=== PATIENT | female | born 1990 | race Caucasian/White ===

== ENCOUNTER 2021-04-13 13:40 | Emergency (ER) | payer SELFPAY ==
[2021-04-13 13:51] VITALS: BP 144/84; PULSE 81; RESP 16; TEMP 36.2; O2SAT 99
--- NOTE | 2021-04-13 14:07 | ED.ANIMALBIT ---
HPI - Animal Bite General Chief Complaint: Animal Bite Stated Complaint: Dog bite Time Seen by Provider: 04/13/21 14:00 Source: patient and RN notes reviewed Mode of arrival: ambulatory Limitations: no limitations History of Present Illness HPI narrative: Patient presents today complaining of a dog bite to her right fourth finger that was sustained at work yesterday. 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 She was bit by a Boxer yesterday. The dog is up-to-date on all vaccines. Patient is unsure of the date of her last tetanus shot. She currently rates her pain 5/10. She did clean the area yesterday and has been washing with soap and water. She reports some tingling to the fingernail. She has not tried any medication for pain prior to arrival. MD complaint: animal bite Related Data Home Medications Medication Instructions Recorded Confirmed lamotrigine [Lamictal] 100 mg PO BID 12/19/18 12/19/18 quetiapine 25 mg PO BID 12/19/18 12/19/18 escitalopram oxalate mg 04/13/21 Allergies Allergy/AdvReac Type Severity Reaction Status Date / Time codeine Allergy Severe Verified 12/21/17 23:15 red dye Allergy Mild Verified 12/21/17 23:15 Review of Systems Review of Systems: CONSTITUTIONAL: Denies body aches, fever, chills, or sweats. EYES: Denies visual changes, redness, or discharge. ENT: Denies rhinorrhea, congestion, sore throat, or otalgia. CARDIOVASCULAR: Denies chest pain, palpitations, or edema. RESPIRATORY: Denies cough or dyspnea. GASTROINTESTINAL: Denies abdominal pain, nausea, vomiting, or diarrhea. GENITOURINARY: Denies dysuria or hematuria. SKIN: Denies rash, itching. + Dog bite MUSCULOSKELETAL: Denies back pain, joint pain, or myalgia. NEUROLOGIC: Denies headache, numbness, tingling, or weakness. PSYCH: Denies depression or anxiety. [facility] Past Medical History Medical History (Updated 04/13/21 @ 15:18 by Kassy Carey, [employer]PERVISOR, ) Bipolar disorder Depression Hypertension Comments At time of signature, I have reviewed and agree with nursing past medical, surgical, social and family history unless otherwise noted. Please see nursing chart for further information. There is no relevant family history pertinent to the presenting complaint Exam Narrative: GENERAL: Well-appearing, well-nourished, and in no acute distress. HEAD: Normocephalic, atraumatic. EYES: EOMI. No redness or drainage. Conjunctivae normal. ENT: Mucous membranes pink and moist. NECK: Normal AROM. CHEST: No respiratory distress. EXTREMITIES: Approximately 1 cm partial skin avulsion at the base of the fingernail of the right fourth finger with possible superficial puncture wound. Distal sensation intact. Capillary refill normal. Full AROM of the finger. Nail unaffected. SKIN: Warm, dry, no rash. Capillary refill normal. Normal skin turgor. NEURO: No focal deficits. Alert and oriented x3. Gait steady. PSYCH: Normal affect. No signs of depression or anxiety. Course Course Level of Care: Express Care Visit Vital Signs Vital signs: Vital Signs Temperature 97.2 F L 04/13/21 13:51 Pulse Rate 81 04/13/21 13:51 Respiratory Rate 16 04/13/21 13:51 Blood Pressure 144/84 H 04/13/21 13:51 Pulse Oximetry 99 04/13/21 13:51 Temperature 97.2 F L 04/13/21 13:51 Pulse Rate 81 04/13/21 13:51 Respiratory Rate 16 04/13/21 13:51 Blood Pressure 144/84 H 04/13/21 13:51 Pulse Oximetry 99 04/13/21 13:51 Reviewed. Pt has been instructed to follow up with her PCP regarding her elevated blood pressure today. MDM - Animal Bite Differential Diagnosis Differential diagnosis: Likely dog bite and rabies contact Critical Care Time Critical Care Time Critical Care Time: No Discharge Plan Discharge Clinical Impression: Dog bite Qualifiers: Encounter type: initial encounter Qualified Code(s): W54.0XXA - Bitten by dog, initial encounter Patient Disposition: Home, Self-Care Condition: Stable Instructions:
[2021-04-13] MEDS: TETANUS,DIPHTHERIA,AC PERTUSSIS ADULT (0.5 ML) BOOSTRIX IM (14:11)
== END 2021-04-13 14:32 | disposition home or self-care (01) ==
PROVIDERS: Emergency Provider Nurse Practitioner; PCP Family Medicine Adolescent Medicine
DX: S61.204A Unspecified open wound of right ring finger without damage to nail, initial encounter (principal); W54.0XXA Bitten by dog, initial encounter; Y99.0 Civilian activity done for income or pay; Z23 Encounter for immunization; I10 Essential (primary) hypertension; F31.9 Bipolar disorder, unspecified
CPT/HCPCS: 90471; 90715; 99213; G0463

== ENCOUNTER 2021-12-25 15:57 | Emergency (ER) | payer OTHER, SELFPAY ==
[2021-12-25 16:11] VITALS: BP 144/99; PULSE 86; RESP 16; TEMP 36.3; O2SAT 100
--- NOTE | 2021-12-25 16:11 | ED.EAR ---
HPI - Ear Problem General Chief complaint: Ear Stated complaint: lt ear pain Time Seen by Provider: 12/25/21 16:15 Source: patient Mode of arrival: ambulatory Limitations: no limitations History of Present Illness HPI Narrative: Ms. Selina Richards is a 31 year old female patient presenting to clinic today with complaints of runny nose and congestion with left-sided rib pain. She reports the left-sided ear pain began this morning. States that she has had runny nose and congestion over the weekend. Her kid have been sick with RSV. Related Data Home Medications Medication Instructions Recorded Confirmed lamotrigine 100 mg tablet 100 mg PO BID 12/19/18 12/19/18 (Lamictal) quetiapine 25 mg tablet 25 mg PO BID 12/19/18 12/19/18 escitalopram oxalate 10 mg tablet mg 04/13/21 Allergies Allergy/AdvReac Type Severity Reaction Status Date / Time codeine Allergy Severe Verified 12/21/17 23:15 red dye Allergy Mild Verified 12/21/17 23:15 Review of Systems Review of Systems: Pertinent positives per HPI. Patient denies any fever, chills, rash, headache, visual changes, dizziness, cough, shortness of breath, chest pain, palpitations, nausea, vomiting, diarrhea, constipation, abdominal pain, or any urinary issues. [facility] Past Medical History Medical History Bipolar disorder Depression Hypertension Comments At the time of my signature, I reviewed and agree with the nursing past medical, surgical, social, and family history. There is no relevant family history pertinent to the patient complaint. Exam Narrative: General: Well-developed, well nourished, in no apparent distress Head: Normocephalic, atraumatic Eyes: Pupils equally round and reactive to light bilaterally, EOM intact, sclera and conjunctive clear, no discharge, lids normal Ears: Right TMs intact, opaque, and dull, left TM intact, red, opaque, and bulging, ear canals clear, no drainage, grossly hearing normal. Nose: Nares patent, clear nasal discharge, mild inflammation, no sinus tenderness. Mouth: Oral pharynx without lesions or masses, good dentition, MMM. Neck: Supple, trachea midline, no enlargement of anterior or posterior cervical nodes, no thyroid masses or goiter palpable. Cardio: Regular rate and rhythm, s1 and s2 normal, no murmur appreciated. Resp: Clear to auscultation bilaterally, no rhonchi, rales, wheezing or rubs Course Course Emergency Course: Portions of this record may have been created with voice recognition software. Level of Care: Express Care Visit Vital Signs Vital signs: Vital Signs Temperature 36.3 C L 12/25/21 16:11 Pulse Rate 86 12/25/21 16:11 Respiratory Rate 16 12/25/21 16:11 Blood Pressure 144/99 H 12/25/21 16:11 Pulse Oximetry 100 12/25/21 16:11 Temperature 36.3 C L 12/25/21 16:11 Pulse Rate 86 12/25/21 16:11 Respiratory Rate 16 12/25/21 16:11 Blood Pressure 144/99 H 12/25/21 16:11 Pulse Oximetry 100 12/25/21 16:11 Vital signs reviewed Medical Decision Making MDM Narrative Medical decision making narrative: At the time of visit patient is resting comfortably on the exam table. I suspect patient has upper respiratory infection with left otitis media. Prescription for amoxicillin was sent to the pharmacy. Supportive measures were discussed with the patient she voiced understanding of discharge instructions and agrees to treatment plan. Differential Diagnosis Differential Diagnosis: Otitis media, otitis started coming upper respiratory infection, eustachian tube dysfunction, otalgia Vital Signs Vital Signs: Vital Signs Temperature 36.3 C L 12/25/21 16:11 Pulse Rate 86 12/25/21 16:11 Respiratory Rate 16 12/25/21 16:11 Blood Pressure 144/99 H 12/25/21 16:11 Pulse Oximetry 100 12/25/21 16:11 Temperature 36.3 C L 12/25/21 16:11 Pulse Rate 86 12/25/21 16:11 Respiratory Rate 16 12/25/21 16:1
[2021-12-25 16:54] VITALS: BP 144/99; PULSE 86; RESP 16; TEMP 36.3; O2SAT 100
== END 2021-12-25 16:19 | disposition home or self-care (01) ==
PROVIDERS: Emergency Provider Nurse Practitioner Family; PCP Family Medicine Adolescent Medicine
DX: J06.9 Acute upper respiratory infection, unspecified (principal); H66.92 Otitis media, unspecified, left ear; I10 Essential (primary) hypertension; F31.9 Bipolar disorder, unspecified
CPT/HCPCS: 99213; G0463

== ENCOUNTER 2022-02-08 13:39 | Emergency (ER) | payer OTHER, SELFPAY ==
--- NOTE | ~2022-02-08 | XR_ITS ---
Lateral and Madden views of the calcaneus Clinical history: Heel pain FINDINGS: No fracture or dislocation identified. Joint spaces are preserved. Os trigonum seen. Soft t issues are unremarkable. IMPRESSION: No significant abnormality seen. Reviewed, dictated and finalized at location [facility]
[2022-02-08 13:50] VITALS: BP 145/101; PULSE 85; RESP 20; TEMP 36.2; O2SAT 100
--- NOTE | 2022-02-08 14:15 | ED.GENADULT ---
HPI - General Adult General Chief complaint: Extremity Injury, Lower Stated complaint: rt heel pain Time Seen by Provider: 02/08/22 13:55 Source: patient, family, RN notes reviewed and old records reviewed Mode of arrival: ambulatory Limitations: no limitations History of Present Illness HPI narrative: 31 year old female accompanied by her brother presents to express car with complaints of right heel pain which comes and goes with no known injury. Patient reports pain increase when stepping down on it. Patient reports that that she has not had any injury to her foot or heel. Patient reports that she did go and get some new shoes thinking that may help. Patient has no obvious swelling, bruising, circulation, sensation and mobility intact. MD complaint: right heel pain Onset (ago): month(s) (2) Related Data Home Medications Medication Instructions Recorded Confirmed lamotrigine 100 mg tablet 100 mg PO BID 12/19/18 02/08/22 (Lamictal) quetiapine 25 mg tablet 25 mg PO BID 12/19/18 02/08/22 escitalopram oxalate 10 mg tablet 10 mg PO DAILY 04/13/21 02/08/22 Allergies Allergy/AdvReac Type Severity Reaction Status Date / Time codeine Allergy Severe Nausea Verified 02/08/22 13:53 red dye Allergy Mild Gastrointestinal Verified 02/08/22 13:53 Upset Review of Systems Review of Systems: CONSTITUTIONAL: Denies fever, chills, or sweats. EYES: Denies visual changes, redness, or discharge. ENT: Denies rhinorrhea, congestion, sore throat, or otalgia. CARDIOVASCULAR: Denies chest pain, palpitations, or edema. RESPIRATORY: Denies cough or dyspnea. GASTROINTESTINAL: Denies abdominal pain, nausea, vomiting, or diarrhea. GENITOURINARY: Denies dysuria or hematuria. SKIN: Denies rash or itching. MUSCULOSKELETAL: Denies back pain, joint pain, or myalgia, positive for right heel pain NEUROLOGIC: Denies headache, numbness, or weakness. PSYCHIATRIC: Denies anxiety or depression. All systems reviewed & are unremarkable except as noted in HPI and below PMFSH Past Medical History Medical History Bipolar disorder Depression Hypertension Social History Social History (Updated 02/08/22 @ 15:57 by Ivette Ly NP) Smoking status: Never smoker Comments At time of signature, agree with nursing past medical, surgical, social and family history. There is no relevant family history pertinent to the presenting complaint Exam Narrative: GENERAL: Well-appearing, well-nourished, and in no acute distress. HEAD: Normocephalic, atraumatic. EYES: PERRLA and EOMI. ENT: Nares clear, no rhinorrhea or epistaxis. Mucous membranes moist. NECK: Supple.no lymphadenopathy CHEST: Clear to auscultation. No respiratory distress.SAO2 100% on room air HEART: Regular rate and rhythm. No murmur heard. Normal peripheral pulses. ABDOMEN: Soft, nontender, nondistended, normal active bowel sounds. EXTREMITIES: Normal range of motion. No edema. pain to right heel no injury or swelling, circulation and sensation intact with pain stated increased at times with weight bearing. SKIN: Warm, dry, no rash. NEURO: No focal deficits. Alert and oriented x3. Course Course Emergency Course: Patient is aware of diagnosis, understands and agrees to treatment plan.? Anticipatory guidance given.? Patient agrees to follow-up as directed and is aware of reasons to seek care at the emergency department. Portions of this record may have been created with voice recognition software Level of Care: Express Care Visit Vital Signs Vital signs: Vital Signs Temperature 36.2 C L 02/08/22 13:50 Pulse Rate 85 02/08/22 13:50 Respiratory Rate 20 02/08/22 13:50 Blood Pressure 145/101 H 02/08/22 13:50 Pulse Oximetry 100 02/08/22 13:50 Temperature 36.2 C L 02/08/22 13:50 Pulse Rate 85 02/08/22 13:50 Respiratory Rate 20 02/08/22 13:50 Blood Pressure 145/101 H 02/08/22 13:50 Pulse Oximetry 100 12
== END 2022-02-08 14:23 | disposition home or self-care (01) ==
PROVIDERS: Emergency Provider Registered Nurse; PCP Family Medicine Adolescent Medicine
DX: M79.671 Pain in right foot (principal); I10 Essential (primary) hypertension; F31.9 Bipolar disorder, unspecified
CPT/HCPCS: 73650; 99213; G0463

== ENCOUNTER 2022-03-06 09:16 | Outpatient (CLI) | payer OTHER, SELFPAY ==
[2022-03-06 20:06] LABS: Hematocrit 40.7 % (37.0-47.0); Hemoglobin 12.9 g/dL (12.0-15.0); Mean Corpuscular HGB Conc 31.7 g/dl (32-36); Mean Corpuscular Hemoglobin 27.2 pg (26-34); Mean Corpuscular Volume 85.7 fl (80-100); Mean Platelet Volume 10.2 fl (7.4-10.4); Platelet Count Result 295 k/mm3 (150-375); Red Blood Count 4.75 M/mm3 (4.2-5.4); White Blood Count 6.8 K/mm3 (4.5-10.0)
[2022-03-06 20:13] LABS: Rheumatoid Factor < 8.6 IU/ML (<12)
[2022-03-06 20:16] LABS: Potassium 3.9 mmol/L (3.4-5.0)
[2022-03-06 20:24] LABS: Alanine Aminotransferase 28 U/L (6-35); Albumin Level 4.3 g/dL (3.5-5.1); Alkaline Phosphatase 96 U/L (38-126); Anion Gap 7 mmol/L (8-16); Aspartate Amino Transferase 36 U/L (14-36); Bilirubin,Total 0.4 mg/dL (0.2-1.3); Blood Urea Nitrogen 9 mg/dL (7-17); CRP 0.6 mg/dL (<1.0); Calcium 8.8 mg/dL (8.4-10.2); Carbon Dioxide 28 mmol/L (22-30); Chloride 103 mmol/L (98-107); Cholesterol 187 mg/dL (0-200); Estimated Glomerular Filt Rate > 60; Glucose 97 mg/dL (65-110); HDL Direct 42 mg/dL; Sodium 138 mmol/L (137-145); Triglycerides 180 mg/dL (<150)
[2022-03-06 20:26] LABS: LDL Cholesterol Direct 104 mg/dL
[2022-03-11 06:46] LABS: ANA Cascade Screen Negative (Negative)
== END 2022-03-06 09:17 | disposition home or self-care (01) ==
LOC: ANHGOSHLAB 09:18
PROVIDERS: PCP Family Medicine; Visit Provider Family Medicine
DX: E66.9 Obesity, unspecified (principal); I10 Essential (primary) hypertension; M25.50 Pain in unspecified joint; R53.83 Other fatigue; Z79.899 Other long term (current) drug therapy
CPT/HCPCS: 36415; 80053; 80061; 84443; 85027; 86038; 86140; 86430

== ENCOUNTER 2022-09-12 08:25 | Outpatient (CLI) | payer OTHER, SELFPAY ==
[2022-09-12 13:03] LABS: Hemoglobin 11.9 g/dL (12.0-15.0); Mean Corpuscular HGB Conc 31.3 g/dl (32-36); Mean Corpuscular Hemoglobin 27.4 pg (26-34); Mean Corpuscular Volume 87.4 fl (80-100); Mean Platelet Volume 9.7 fl (7.4-10.4); Platelet Count Result 279 k/mm3 (150-375); Red Blood Count 4.35 M/mm3 (4.2-5.4); Red Cell Distribution Width 14.6 % (11.5-14.5); White Blood Count 7.7 K/mm3 (4.5-10.0)
[2022-09-12 13:15] LABS: Alanine Aminotransferase 23 U/L (6-35); Albumin Level 3.8 g/dL (3.5-5.1); Alkaline Phosphatase 93 U/L (38-126); Anion Gap 9 mmol/L (8-16); Aspartate Amino Transferase 47 U/L (14-36); Bilirubin,Total 0.4 mg/dL (0.2-1.3); Blood Urea Nitrogen 8 mg/dL (7-17); Calcium 8.6 mg/dL (8.4-10.2); Carbon Dioxide 24 mmol/L (22-30); Chloride 104 mmol/L (98-107); Cholesterol 164 mg/dL (0-200); Estimated Glomerular Filt Rate > 60; Glucose 90 mg/dL (65-110); HDL Direct 40 mg/dL; Potassium 3.9 mmol/L (3.4-5.0); Sodium 137 mmol/L (137-145); Triglycerides 143 mg/dL (<150)
[2022-09-12 13:21] LABS: Iron 48 ug/dL (37-170)
[2022-09-12 13:25] LABS: LDL Cholesterol Direct 86 mg/dL
[2022-09-12 13:37] LABS: Percent Iron Saturation 11 % (20-50)
== END 2022-09-12 08:26 | disposition home or self-care (01) ==
LOC: ANHGOSHLAB 08:27
PROVIDERS: PCP Family Medicine; Visit Provider Family Medicine
DX: R12 Heartburn (principal); G25.81 Restless legs syndrome; R53.83 Other fatigue; M25.50 Pain in unspecified joint; I10 Essential (primary) hypertension; E66.9 Obesity, unspecified
CPT/HCPCS: 36415; 80053; 80061; 82728; 83540; 83550; 84443; 85027

== ENCOUNTER 2022-10-04 12:32 | Emergency (ER) | payer OTHER, SELFPAY ==
--- NOTE | 2022-10-04 12:34 | ED.WOUNDLAC ---
HPI - Wound/Laceration General Chief Complaint: Animal Bite Stated Complaint: CAT BITE Time Seen by Provider: 10/04/22 12:33 Source: patient Mode of arrival: ambulatory Limitations: no limitations History of Present Illness HPI narrative: Patient is a 32-year-old female who presents with cat bite to right forearm sustained today at work. 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 Patient states CT was up-to-date on vaccinations. Reports sharp pain to area. Patient did wash with soap and water. Related Data Home Medications Medication Instructions Recorded Confirmed escitalopram oxalate 20 mg tablet 30 mg PO DAILY 08/23/22 10/04/22 lamotrigine 200 mg tablet 200 mg PO HS 08/23/22 10/04/22 quetiapine 50 mg tablet 50 mg PO HS 08/23/22 10/04/22 sucralfate 1 gram tablet (Carafate) 1 g PO QID PRN Gastric Reflux 10/01/22 10/04/22 Allergies Allergy/AdvReac Type Severity Reaction Status Date / Time codeine AdvReac Severe Nausea Verified 10/04/22 12:45 red dye AdvReac Intermediate Gastrointestinal Verified 10/04/22 12:45 Upset Review of Systems Review of Systems: All systems reviewed & are unremarkable except as noted in HPI and below Constitutional: Constitutional: Denies body ache(s), Denies chills, Denies fatigue, Denies fever(s), Denies headache(s), Denies malaise and Denies weakness Eyes: Eyes: Denies blurry vision, Denies irritation and Denies loss of vision ENT: Denies otalgia, Denies headache(s), Denies nasal discharge, Denies sinus pain and Denies sore throat Cardiovascular: Cardiovascular: Denies chest pain, Denies irregular heart rhythm and Denies dyspnea Respiratory: Respiratory: Denies dyspnea Gastrointestinal: Gastrointestinal: Denies abdominal pain, Denies melena, Denies hematochezia, Denies diarrhea, Denies nausea and Denies vomiting Musculoskeletal: Musculoskeletal: Denies back pain, Denies myalgias and Denies arthralgias Integumentary/Breasts: Skin/Breast: Denies pruritus, Denies rash and Reports wounds Neurologic: Denies headache(s), Denies loss of vision and Denies weakness Psychiatric: Psychiatric: Reports no additional psychiatric complaints Endocrine: Endocrine: Denies fatigue PMFSH Past Medical History Medical History (Updated 10/04/22 @ 12:51 by Shanika Wheeler APRN) Bipolar disorder Depression Hypertension Nausea & vomiting Upper abdominal pain Social History Social History Smoking status: Never smoker Alcohol intake: current Substance use: current Substance use type: does not use Lack of Transportation: No Lack of Food: Never True Current Housing: I Have Housing Concerned About Future Housing: No Difficulty Paying Gas/Electric Bills: No Difficulty Paying for Meds: No Currently Unemployed: No Education: High School Diploma/GED Difficulty w/ Childcare or Family Care: No Spiritual care concerns: No Comments At time of signature, agree with nursing past medical, surgical, social and family history. There is no relevant family history pertinent to the presenting complaint. Exam Const: General: cooperative, healthy appearing, comfortable, no acute distress and well nourished Nutritional Appearance: well nourished Orientation/consciousness: patient oriented x3 Limitations: no limitations HENMT: Head: normal to inspection, normocephalic and atraumatic Ears: hearing grossly normal bilaterally and external ears normal Face/Nose/Sinus: Normal external nose present, normal facial exam and face symmetric Face and sinus: normal facial exam and face symmetric Mouth: Yes lip normal Eyes: General: appearance normal, both eyes and all related structures Alignment and Position: alignment normal and position normal Periorbital: periorbital findings normal Eyelids: eyelids normal Pupils: Equal, round and reactive pupils present EOM: EOMs intact bilaterally Neck: Neck: normal visual inspection,
[2022-10-04 12:40] VITALS: BP 140/88; PULSE 88; RESP 16; TEMP 36.7; O2SAT 100
[2022-10-04] MEDS: TETANUS,DIPHTHERIA,AC PERTUSSIS ADULT (0.5 ML) BOOSTRIX IM (13:01)
== END 2022-10-04 13:20 | disposition home or self-care (01) ==
PROVIDERS: Emergency Provider Nurse Practitioner Family; PCP Family Medicine
DX: S51.831A Puncture wound without foreign body of right forearm, initial encounter (principal); W55.01XA Bitten by cat, initial encounter; I10 Essential (primary) hypertension; F31.9 Bipolar disorder, unspecified
CPT/HCPCS: 90471; 90715; 99213; G0463

== ENCOUNTER 2022-10-05 18:19 | Emergency (ER) | payer OTHER, SELFPAY ==
[2022-10-05 18:20] VITALS: BP 180/99; PULSE 92; RESP 16; TEMP 36.4; O2SAT 100
--- NOTE | 2022-10-05 19:00 | ED.ANIMALBIT ---
HPI - Animal Bite General Chief Complaint: Animal Bite Stated Complaint: Cat Bite Time Seen by Provider: 10/05/22 18:41 History of Present Illness HPI narrative: 32-year-old female presented the ED for evaluation of a cat bite to her right forearm. Patient reports she was bit yesterday. Patient was evaluated at urgent care and treated with tetanus and started on Augmentin. Patient has 3 doses of Augmentin. Patient states he still has some erythema so she wanted to be evaluated. Related Data Home Medications Medication Instructions Recorded Confirmed escitalopram oxalate 20 mg tablet 30 mg PO DAILY 08/23/22 10/04/22 lamotrigine 200 mg tablet 200 mg PO HS 08/23/22 10/04/22 quetiapine 50 mg tablet 50 mg PO HS 08/23/22 10/04/22 sucralfate 1 gram tablet (Carafate) 1 g PO QID PRN Gastric Reflux 10/01/22 10/04/22 Allergies Allergy/AdvReac Type Severity Reaction Status Date / Time codeine AdvReac Severe Nausea Verified 10/05/22 19:39 red dye AdvReac Intermediate Gastrointestinal Verified 10/05/22 19:39 Upset Review of Systems Review of Systems: All systems reviewed & are unremarkable except as noted in HPI and below PMFSH Past Medical History Medical History (Updated 10/05/22 @ 20:16 by Finesse Covarrubias MD) Bipolar disorder Depression Hypertension Nausea & vomiting Upper abdominal pain Social History Social History Smoking status: Never smoker Alcohol intake: current Substance use: current Substance use type: does not use Lack of Transportation: No Lack of Food: Never True Current Housing: I Have Housing Concerned About Future Housing: No Difficulty Paying Gas/Electric Bills: No Difficulty Paying for Meds: No Currently Unemployed: No Education: High School Diploma/GED Difficulty w/ Childcare or Family Care: No Spiritual care concerns: No Exam Narrative: APPEARANCE: Well appearing, no pain, no distress, well-nourished. HEAD: normocephalic, atraumatic. EYES: PERRLA/EOMI, conjunctivae clear. NOSE: Normal no drainage EARS:TMS clear with good light reflex. THROAT: Pharynx clear, no exudate. NECK: Supple. No adenopathy, no masses. RESPIRATORY: Airway patent, respirations nonlabored. Clear to auscultation bilaterally, no rales, rhonchi, wheezing. CARDIOVASCULAR: Regular rate and rhythm without murmurs rubs or gallops. ABDOMINAL: Soft, nontender, nondistended, normal bowel sounds MUSCULOSKELETAL: Tenderness at site of bite but no tenderness in hand or with range of motion of hand or wrist. NEURO: Alert. Cranial nerves II through XII intact. Good gait. Good coordination SKIN: 4 cm diameter erythema to right forearm with tenderness. Course Course Emergency Course: 32-year-old female presented emergency department for evaluation of erythema to her right forearm after a cat bite. Patient has been on Augmentin. Patient was treated with an IV dose of Unasyn. Patient had a saroj on her arm showing that the erythema had not significantly worsened today. Patient was educated on reasons to return to the emergency department. Patient's tetanus was updated yesterday. Patient was encouraged to continue taking her Augmentin. All questions and concerns were addressed Vital Signs Vital signs: Vital Signs Temperature 97.5 F L 10/05/22 18:20 Pulse Rate 92 10/05/22 18:20 Respiratory Rate 16 10/05/22 18:20 Blood Pressure 180/99 H 10/05/22 18:20 Pulse Oximetry 100 10/05/22 18:20 Oxygen Delivery Room Air 10/05/22 18:20 Temperature 97.5 F L 10/05/22 18:20 Pulse Rate 68 10/05/22 20:45 Respiratory Rate 16 10/05/22 18:20 Blood Pressure 144/94 H 10/05/22 20:45 Pulse Oximetry 100 10/05/22 20:45 Oxygen Delivery Room Air 10/05/22 18:20 Discharge Plan Discharge Clinical Impression: Cat bite Patient Disposition: Home, Self-Care Condition: Stable Instructions: Antibiotic Form, Animal
[2022-10-05 19:54] VITALS: O2SAT 100
[2022-10-05] MEDS: AMPICILLIN SULB 3 GM/NS 100 ML 3 GM/100 ML VIAL IVPB (19:58)
[2022-10-05 20:00] VITALS: O2SAT 100
[2022-10-05 20:15] VITALS: O2SAT 100
[2022-10-05 20:30] VITALS: O2SAT 100
[2022-10-05 20:45] VITALS: BP 144/94; PULSE 68; O2SAT 100
== END 2022-10-05 20:54 | disposition home or self-care (01) ==
PROVIDERS: Emergency Provider Emergency Medicine; PCP Family Medicine
DX: S51.851A Open bite of right forearm, initial encounter (principal); I10 Essential (primary) hypertension; F31.9 Bipolar disorder, unspecified; W55.01XA Bitten by cat, initial encounter
CPT/HCPCS: 96365; 99284; J0295

== ENCOUNTER 2022-10-11 01:36 | Day surgery (SDC) | payer OTHER, SELFPAY ==
[2022-10-01 10:16] VITALS: BMI 40.4
--- NOTE | 2022-10-11 10:51 | WPDANESEPPF ---
Anes - Initial Pre Proc Eval Procedure: Operation Date: 10/11/22 11:15 Proposed Procedures p Esophagogastroduodenoscopy - Bao Gunn MD Date/Time: 10/11/22 10:51 Surgeon: Bao Gunn MD Pre Op Diagnosis: upper abdominal pain, nausea, vomiting Patient Data Age: 32 Gender: F Height: 1.64 m Weight: 108.5 kg Allergies Allergy/AdvReac Type Severity Reaction Status Date / Time codeine AdvReac Severe Nausea Verified 10/11/22 10:14 red dye AdvReac Intermediate Gastrointestinal Verified 10/11/22 10:14 Upset Home Medications Medication Instructions Recorded Confirmed Type escitalopram oxalate 20 mg tablet 30 mg PO DAILY 08/23/22 10/04/22 History famotidine 20 mg tablet 20 mg PO BID #180 tabs 08/23/22 10/04/22 Rx lamotrigine 200 mg tablet 200 mg PO HS 08/23/22 10/04/22 History quetiapine 50 mg tablet 50 mg PO HS 08/23/22 10/04/22 History nifedipine 30 mg tablet,extended 30 mg PO DAILY #90 tabs 09/02/22 10/04/22 Rx release lansoprazole 30 mg capsule,delayed 30 mg PO BID 1 month #60 caps 09/18/22 10/04/22 Rx release sucralfate 1 gram tablet (Carafate) 1 g PO QID PRN Gastric Reflux 10/01/22 10/04/22 History amoxicillin 875 mg-potassium 1 tablet PO Q12H 10 days #20 tabs 10/04/22 Rx clavulanate 125 mg tablet Patient hx anesthesia problems: none Family hx anesthesia problems: none Results Review: All pre-operative results and documents have been reviewed as part of the pre-operative evaluation. [facility] Past Medical History Medical History Bipolar disorder Depression Hypertension Nausea & vomiting Upper abdominal pain Social History Social History Smoking status: Never smoker Alcohol intake: current Substance use: current Substance use type: does not use Lack of Transportation: No Lack of Food: Never True Current Housing: I Have Housing Concerned About Future Housing: No Difficulty Paying Gas/Electric Bills: No Difficulty Paying for Meds: No Currently Unemployed: No Education: High School Diploma/GED Difficulty w/ Childcare or Family Care: No Spiritual care concerns: No Anes - Eval Final PreProcedure Day of Procedure 10/11/22 10:51 Patient weight: morbidly obese Heart: regular rate and rhythm Lungs: clear to auscultation Airway: Mallampati scale class II Neurological: alert and oriented Last oral intake: >/= 8 hours ASA classification: III Emergent: no Anesthetic plan: proceed Anesthesia type and monitoring: general GIVS and standard monitoring Results Review: All pre-operative results and documents have been reviewed as part of the pre-operative evaluation. Informed Consent: The patient's anesthetic plan and its attendant risks and benefits were discussed with the patient/family/POA. Questions were solicited and answers provided to the satisfaction of the patient/family/POA.
--- NOTE | 2022-10-11 11:01 | PM.HPGS ---
History of Present Illness History of Present Illness Consent: Risks, benefits, and alternatives have been discussed and questions answered. Patient agrees to proceed with procedure. Chief complaint: upper abdominal pain, nausea, vomiting Narrative: Megan Lockwood is a 32 year old female Presents for EGD. Patient complains of ongoing heartburn and acid regurgitation. She recently was started on proton pump inhibitor and has had marked improvement of symptoms over the last 1 month. Currently taking lansoprazole 30mg p.o. b.i.d.. Also takes famotidine 20mg p.o. b.i.d.. Previously took no medications. She has past medical history of bipolar illness. She states she had a stomach ulcer when she was a child. Family history is noncontributory. Patient presents today for EGD to evaluate recent epigastric pain. Review of Systems Review of Systems: Review of systems noncontributory. [facility] Past Medical History Medical History Bipolar disorder Depression Hypertension Nausea & vomiting Upper abdominal pain Social History Social History Smoking status: Never smoker Alcohol intake: current Substance use: current Substance use type: does not use Lack of Transportation: No Lack of Food: Never True Current Housing: I Have Housing Concerned About Future Housing: No Difficulty Paying Gas/Electric Bills: No Difficulty Paying for Meds: No Currently Unemployed: No Education: High School Diploma/GED Difficulty w/ Childcare or Family Care: No Spiritual care concerns: No Meds Home Medications and Allergies Home Medications Medication Instructions Recorded Confirmed Type escitalopram oxalate 20 mg tablet 30 mg PO DAILY 08/23/22 10/11/22 History famotidine 20 mg tablet 20 mg PO BID #180 tabs 08/23/22 10/11/22 Rx lamotrigine 200 mg tablet 200 mg PO HS 08/23/22 10/11/22 History quetiapine 50 mg tablet 50 mg PO HS 08/23/22 10/11/22 History nifedipine 30 mg tablet,extended 30 mg PO DAILY #90 tabs 09/02/22 10/11/22 Rx release lansoprazole 30 mg capsule,delayed 30 mg PO BID 1 month #60 caps 09/18/22 10/11/22 Rx release sucralfate 1 gram tablet (Carafate) 1 g PO QID PRN Gastric Reflux 10/01/22 10/11/22 History amoxicillin 875 mg-potassium 1 tablet PO Q12H 10 days #20 tabs 10/04/22 10/11/22 Rx clavulanate 125 mg tablet Allergies Allergy/AdvReac Type Severity Reaction Status Date / Time codeine AdvReac Severe Nausea Verified 10/11/22 10:14 red dye AdvReac Intermediate Gastrointestinal Verified 10/11/22 10:14 Upset Exam Narrative: Physical exam reveals patient to be alert. Vital signs stable. HEENT exam is unremarkable. Patient is anicteric. Lungs are clear to auscultation and percussion. Heart is without murmur or extra sounds. Abdominal exam bowel sounds are present soft nontender with no organomegaly. Digital rectal exam deferred today. Assessment and Plan Assessment and plan (1) Upper abdominal pain: Code(s): R10.10 - Upper abdominal pain, unspecified Status: Acute Assessment and Plan: Patient with epigastric pain heartburn regurgitation all consistent with ongoing acid reflux disease. Plan to perform EGD to evaluate more thoroughly. Hopefully her supplemental medicines can be discontinued. She is on Carafate which should be discontinued along with famotidine and lansoprazole continued eventually taper to the lowest dose that maintains her current symptom free environment. (2) Heartburn: Code(s): R12 - Heartburn Status: Acute
[2022-10-11 11:02] VITALS: BP 151/95; PULSE 72; RESP 20; TEMP 35.9; O2SAT 99; BMI 41.3
[2022-10-11] MEDS: LACTATED RINGERS 1,000 ML 150 ML IV CONT (11:05)
[2022-10-11] MEDS: BENZOCAINE (*SP) 60 ML SPRAY CAN (HURRICAINE) 1 SPRAY MUCOUS MEM (11:12)
[2022-10-11 11:27] VITALS: BP 110/54; PULSE 76; RESP 19; O2SAT 98
[2022-10-11 11:37] VITALS: BP 110/72; PULSE 73; RESP 17; O2SAT 98
[2022-10-11 11:47] VITALS: BP 144/100; PULSE 73; RESP 17; O2SAT 100
== END 2022-10-11 12:00 | disposition home or self-care (01) ==
PROVIDERS: PCP Family Medicine; Visit Provider Internal Medicine Gastroenterology
PROC: 0DJ08ZZ Inspection of Upper Intestinal Tract, Via Natural or Artificial Opening Endoscopic (ICD-10-PCS; CPT 43235; principal; 2022-10-11 11:15)
DX: K44.9 Diaphragmatic hernia without obstruction or gangrene (principal); R12 Heartburn; R11.2 Nausea with vomiting, unspecified; F31.9 Bipolar disorder, unspecified; I10 Essential (primary) hypertension; E66.01 Morbid (severe) obesity due to excess calories; Z68.41 Body mass index [BMI] 40.0-44.9, adult
CPT/HCPCS: 43239; 87081; J2704; J7120

== ENCOUNTER 2023-06-11 13:03 | Outpatient (CLI) | payer BC, SELFPAY | END 2023-06-11 13:04 | disposition home or self-care (01) | LOC: ANHAUDASC 13:04 | PROVIDERS: PCP Family Medicine; Visit Provider Family Medicine | DX: H91.90 Unspecified hearing loss, unspecified ear (principal) | CPT/HCPCS: 92557; 92567 ==

== ENCOUNTER 2023-06-14 17:29 | Emergency (ER) | payer OTHER, SELFPAY ==
--- NOTE | ~2023-06-14 | XR_ITS ---
EXAM: XR hand LT min 3V DATE: 06/14/2023 19:36 HISTORY: dog bite . COMPARISON: None available. FINDINGS: Normal mineralization. No fracture or dislocation. No lytic or blastic lesion. Joint space s are maintained. No erosion or periosteal change. Soft tissues within normal limits. IMPRESSION: No acute osseous finding in the left hand. Reviewed, dictated and finalized at location K.
[2023-06-14 17:31] VITALS: BP 155/97; PULSE 95; RESP 18; TEMP 36.3; O2SAT 99
--- NOTE | 2023-06-14 19:31 | ED.ANIMALBIT ---
HPI - Animal Bite General Chief Complaint: Animal Bite Stated Complaint: dog bite Time Seen by Provider: 06/14/23 19:16 Source: patient Mode of arrival: ambulatory Limitations: no limitations History of Present Illness HPI narrative: This is a 32-year-old female that presents to the emergency department for dog bite to the left hand sustained just prior to arrival. Reports she got bit by a dog at work. The dog is up-to-date on its vaccinations. She is up-to-date on her tetanus vaccination. Reports bleeding and pain in the area. Denies decreased range of motion or numbness. Related Data Home Medications Medication Instructions Recorded Confirmed escitalopram oxalate 20 mg tablet 30 mg PO DAILY 08/23/22 05/20/23 quetiapine 50 mg tablet 50 mg PO HS 08/23/22 05/20/23 lamotrigine 200 mg tablet 300 mg PO HS 05/20/23 05/20/23 Allergies Allergy/AdvReac Type Severity Reaction Status Date / Time codeine AdvReac Severe Nausea Verified 06/14/23 17:33 red dye AdvReac Intermediate Gastrointestinal Verified 06/14/23 17:33 Upset Review of Systems Review of Systems: CONSTITUTIONAL: Denies fever SKIN: Reports laceration MUSCULOSKELETAL: Reports joint pain, and myalgia. NEUROLOGIC: Denies numbness All systems reviewed & are unremarkable except as noted in HPI and below PMFSH Past Medical History Medical History Bipolar disorder Depression Hypertension Nausea & vomiting Upper abdominal pain Social History Social History Smoking status: Never smoker Alcohol intake: current Substance use: current Substance use type: does not use Lack of Transportation: No Lack of Food: Never True Current Housing: I Have Housing Concerned About Future Housing: No Difficulty Paying Gas/Electric Bills: No Difficulty Paying for Meds: No Currently Unemployed: No Education: High School Diploma/GED Difficulty w/ Childcare or Family Care: No Spiritual care concerns: No Exam Narrative: GENERAL: Well-appearing, well-nourished, and in no acute distress. HEAD: Normocephalic, atraumatic. EYES: EOMI. EXTREMITIES: Normal range of motion. No edema. Normal radial pulse. Normal sensation. Multiple small (<1cm) puncture wounds to the left hand SKIN: Warm, dry, no rash. NEURO: No focal deficits. Alert and oriented x3. PSYCH: Normal mood and affect Course Course Emergency Course: Patient updated on her workup and agrees with plan of care Vital Signs Vital signs: Vital Signs Temperature 97.4 F L 06/14/23 17:31 Pulse Rate 95 06/14/23 17:31 Respiratory Rate 18 06/14/23 17:31 Blood Pressure 155/97 H 06/14/23 17:31 Pulse Oximetry 99 06/14/23 17:31 Oxygen Delivery Room Air 06/14/23 17:31 Temperature 97.4 F L 06/14/23 17:31 Pulse Rate 95 06/14/23 17:31 Respiratory Rate 18 06/14/23 17:31 Blood Pressure 155/97 H 06/14/23 17:31 Pulse Oximetry 99 06/14/23 17:31 Oxygen Delivery Room Air 06/14/23 17:31 Procedures Laceration Laceration 1: Date: 06/14/23 Time: 19:49 Site: hand Side (If applicable): left Size (cm): 1 Description: linear Depth: simple, single layer Pre-repair: irrigated extensively ====== Skin Level ====== ====== Subcutaneous Layer ====== ====== Muscle Layer ====== ====== Tendon Layer ====== Dressing: Multiple puncture wounds irrigated and covered with antibiotic ointment and a bandage MDM - Animal Bite MDM Narrative Medical decision making narrative: Patient presents to the emergency department for a dog bite to the left hand sustained just prior to arrival. The dog is up-to-date on its vaccinations. She is up-to-date on her tetanus vaccination. Multiple small puncture wounds noted to the hand. Her wounds were irrigated and covered with antibiotic ointm
[2023-06-14] MEDS: AMOXICILLIN/CLAVULANATE K 875-125 MG TAB 1 TABLET PO (20:04)
== END 2023-06-14 20:07 | disposition home or self-care (01) ==
PROVIDERS: Emergency Provider Physician Assistant; PCP Family Medicine
DX: S61.452A Open bite of left hand, initial encounter (principal); I10 Essential (primary) hypertension; F31.9 Bipolar disorder, unspecified; W54.0XXA Bitten by dog, initial encounter
CPT/HCPCS: 73130; 99283; A9270

== ENCOUNTER 2023-11-11 15:53 | Emergency (ER) | payer BC, SELFPAY ==
--- NOTE | ~2023-11-11 | XR_ITS ---
XR chest 2V Ordering provider: Socorro Roach APRN History: 33 years Female with . cough, congestion . Comparison: None. FINDINGS: MEDIASTINUM: The cardiac silhouette is not enlarged. LUNGS: No infiltrates, effusions or pneumothorax. OTHER: No free air under the diaphragm. IMPRESSION: No acute cardiopulmonary pathology. Reviewed, dictated and finalized at location A.
[2023-11-11 16:01] VITALS: BP 146/92; PULSE 95; RESP 16; TEMP 35.8; O2SAT 99
--- NOTE | 2023-11-11 16:07 | ED.URI ---
HPI - URI/Sore Throat General Chief Complaint: Upper Respiratory Infection Stated Complaint: Sore Throat/Chest Congestion Source: patient and RN notes reviewed Mode of arrival: ambulatory Limitations: no limitations History of Present Illness HPI Narrative: Patient is a 33-year-old female who presents to the [facility] with multiple complaints. Patient reports sore throat that developed within the past week. Patient also endorses generalized body aches and increased fatigue. States that she has had a frequent nonproductive cough for the past week. She states that it is now become productive causing her chest congestion. She denies chest pain or shortness of breath. Denies known fevers. States that her coworkers have been sick with worsening symptoms. Also states her grandma was recently diagnosed with pneumonia. Related Data Home Medications Medication Instructions Recorded Confirmed escitalopram oxalate 20 mg tablet 30 mg PO DAILY 08/23/22 06/25/23 quetiapine 50 mg tablet 50 mg PO HS 08/23/22 06/25/23 lamotrigine 200 mg tablet 300 mg PO HS 05/20/23 06/25/23 Allergies Allergy/AdvReac Type Severity Reaction Status Date / Time codeine AdvReac Severe Nausea Verified 11/11/23 16:11 red dye AdvReac Intermediate Gastrointestinal Verified 11/11/23 16:11 Upset Review of Systems Review of Systems: CONSTITUTIONAL: Denies fever, chills, or sweats. EYES: Denies visual changes, redness, or discharge. ENT: Denies otalgia. Reports sore throat. CARDIOVASCULAR: Denies chest pain, palpitations, or edema. RESPIRATORY: Reports cough but dyspnea. GASTROINTESTINAL: Denies abdominal pain, nausea, vomiting, or diarrhea. GENITOURINARY: Denies dysuria or hematuria. SKIN: Denies rash or itching. MUSCULOSKELETAL: Denies back pain, joint pain, but reports myalgia. NEUROLOGIC: Denies headache, numbness, or weakness. Pertinent positives per HPI. [facility] Past Medical History Medical History Bipolar disorder Depression Hypertension Nausea & vomiting Upper abdominal pain Social History Social History Smoking status: Never smoker Alcohol intake: current Substance use: current Substance use type: does not use Lack of Transportation: No Lack of Food: Never True Current Housing: I Have Housing Concerned About Future Housing: No Difficulty Paying Gas/Electric Bills: No Difficulty Paying for Meds: No Currently Unemployed: No Education: High School Diploma/GED Difficulty w/ Childcare or Family Care: No Spiritual care concerns: No Comments At the time of my signature, I reviewed and agree with the nursing past medical, surgical, social, and family history. There is no relevant family history pertinent to the patient complaint. Exam Narrative: GENERAL: This is a well-nourished, well-developed patient, in no apparent distress. HEAD: normocephalic, atraumatic. EYES: Sclera clear/white. Vision is grossly intact. EARS: External ears normal. Hearing grossly intact. NOSE: External nose normal with no obvious nasal discharge, nares without redness, no rhinorrhea. THROAT: Mucous membranes moist, posterior pharynx clear. NECK: Neck supple, non-tender without lymphadenopathy, masses or thyromegaly. CARDIOVASCULAR: Regular rate and rhythm without murmurs, gallops, or rubs. RESPIRATORY: Clear to auscultation. Breath sounds equal bilaterally. No wheezes, rales, or rhonchi. GASTROINTESTINAL: Abdomen soft, non-tender, nondistended. Bowel sounds are active. No hepato-splenomegaly, or palpable masses. No guarding. SKIN: warm, intact with no suspicious lesions or rash, good texture and turgor. NEURO: awake, alert, and oriented to person, place and time. There were no obvious focal neurologic abnormalities. EXTREMITIES: No clubbing, cyanosis, or edema. No joint tenderness, effusion, or edema noted. Course Co
[2023-11-11 16:29] LABS: EDCOVIDSCREEN Negative (Negative); EDSTREPNEGPOS1 Positive (Negative)
== END 2023-11-11 16:35 | disposition home or self-care (01) ==
PROVIDERS: Emergency Provider Nurse Practitioner; PCP Family Medicine
DX: J02.0 Streptococcal pharyngitis (principal); I10 Essential (primary) hypertension; Z20.822 Contact with and (suspected) exposure to COVID-19
CPT/HCPCS: 71046; 87426; 87880; 99213; G0463

== ENCOUNTER 2023-11-14 10:02 | Outpatient (CLI) | payer BC, SELFPAY ==
[2023-11-14 13:49] LABS: Iron 62 ug/dL (37-170)
[2023-11-14 13:50] LABS: Hematocrit 39.2 % (37.0-47.0); Hemoglobin 12.6 g/dL (12.0-15.0); Mean Corpuscular HGB Conc 32.1 g/dl (32-36); Mean Corpuscular Hemoglobin 27.6 pg (26-34); Mean Corpuscular Volume 85.8 fl (80-100); Mean Platelet Volume 9.7 fl (7.4-10.4); Platelet Count Result 302 k/mm3 (150-375); Red Blood Count 4.57 M/mm3 (4.2-5.4); Red Cell Distribution Width 14.2 % (11.5-14.5)
[2023-11-14 13:58] LABS: Percent Iron Saturation 17 % (20-50)
[2023-11-14 14:28] LABS: Alanine Aminotransferase 22 U/L (6-35); Albumin Level 4.1 g/dL (3.5-5.1); Alkaline Phosphatase 91 U/L (38-126); Anion Gap 9 mmol/L (4-12); Aspartate Amino Transferase 71 U/L (14-36); Bilirubin,Total 0.5 mg/dL (0.2-1.3); Blood Urea Nitrogen 8 mg/dL (7-17); Calcium 8.9 mg/dL (8.4-10.2); Carbon Dioxide 26 mmol/L (22-30); Chloride 101 mmol/L (98-107); Cholesterol 169 mg/dL (0-200); Estimated Glomerular Filt Rate > 60; Glucose 105 mg/dL (65-110); HDL Direct 43 mg/dL; Potassium 3.8 mmol/L (3.4-5.0); Sodium 136 mmol/L (137-145); Triglycerides 120 mg/dL (<150)
[2023-11-14 14:39] LABS: LDL Cholesterol Direct 97 mg/dL
== END 2023-11-14 10:03 | disposition home or self-care (01) ==
LOC: ANHGOSHLAB 10:03
PROVIDERS: PCP Family Medicine; Visit Provider Family Medicine
DX: E61.1 Iron deficiency (principal); D64.9 Anemia, unspecified; Z79.899 Other long term (current) drug therapy; I10 Essential (primary) hypertension; E66.9 Obesity, unspecified
CPT/HCPCS: 36415; 80053; 80061; 82728; 83540; 83550; 84443; 85027

== ENCOUNTER 2024-12-18 14:25 | Emergency (ER) | payer OTHER, SELFPAY ==
[2024-12-18 14:39] VITALS: BP 133/86; PULSE 89; RESP 16; TEMP 35.7; O2SAT 100
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
== END 2024-12-18 15:28 | disposition home or self-care (01) ==
PROVIDERS: Emergency Provider Nurse Practitioner; PCP Family Medicine
DX: S56.912A Strain of unspecified muscles, fascia and tendons at forearm level, left arm, initial encounter (principal); V43.52XA Car driver injured in collision with other type car in traffic accident, initial encounter; I10 Essential (primary) hypertension; K21.9 Gastro-esophageal reflux disease without esophagitis; F31.9 Bipolar disorder, unspecified
CPT/HCPCS: 99212; G0463

== ENCOUNTER 2025-01-29 16:21 | Emergency (ER) | payer OTHER, SELFPAY ==
[2025-01-29 16:32] VITALS: BP 174/114; PULSE 85; RESP 16; TEMP 36.4; O2SAT 99
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
== END 2025-01-29 16:48 | disposition home or self-care (01) ==
PROVIDERS: Emergency Provider Nurse Practitioner Family; PCP Family Medicine
DX: S05.01XA Injury of conjunctiva and corneal abrasion without foreign body, right eye, initial encounter (principal); W20.8XXA Other cause of strike by thrown, projected or falling object, initial encounter; I10 Essential (primary) hypertension; K21.9 Gastro-esophageal reflux disease without esophagitis; F31.9 Bipolar disorder, unspecified
CPT/HCPCS: 99213; A9270; G0463